=== PATIENT | female | born 1935 | race Caucasian/White ===

== ENCOUNTER 2017-03-25 12:03 | Inpatient (IN) | payer OTHER, MEDICARE ==
[2017-03-25] MEDS ORDERED: NS 1,000 ML IV ONE (12:41)
--- NOTE | 2017-03-25 12:45 | EDPHY ---
H & P Time Seen by Provider: 03/25/17 12:40 HPI/ROS: CHIEF COMPLAINT: HISTORY OF PRESENT ILLNESS: [Location, Duration, Severity, Quality, Context, Timing Modifying Factors, Associated S&S] REVIEW OF SYSTEMS: Constitutional: No fever, no chills Eyes: No visual changes ENT: No sore throat Respiratory: No cough, no shortness of breath Cardiac: No chest pain Gastrointestinal: No nausea, no vomiting, no abdominal pain Genitourinary: No hematuria, no dysuria Musculoskeletal: No leg pain or swelling Skin: No rash Neurological: No headache, no numbness, no weakness Psychiatric: No depression Past Medical/Surgical History: 1. Aortic aneurysm repair 10/30/13 (currently has stable aneurysm) 2. Hysterectomy 3. Appendectomy 4. Neck aneurysm dissection 5. Macular degeneration 6. Colon surgery 7. Colitis Social History: Lives in [place]. PCP Dr. Novoa. Smoking Status: Never smoked Physical Exam: General Appearance: Alert, no distress Eyes: Pupils equal and round, no conjunctival pallor or injection ENT, Mouth: Mucous membranes moist Neck: Normal inspection Respiratory: Lungs are clear to auscultation Cardiovascular: Regular rate and rhythm Gastrointestinal: Abdomen is soft and non- tender Neurological: A&O, nonfocal, normal gait Skin: Warm and dry, no rash Extremities: Nontender, no pedal edema Psychiatric: Mood and affect normal Constitutional: Initial Vital Signs Temperature (C) 36.8 C 03/25/17 12:09 Heart Rate 58 L 03/25/17 12:09 Respiratory Rate 18 03/25/17 12:09 Blood Pressure 119/50 L 03/25/17 12:09 O2 Sat (%) 92 03/25/17 12:09 O2 Delivery Mode Room Air Allergies/Adverse Reactions: No Known Allergies Allergy (Verified 03/25/17 12:06) Home Medications: Medication Instructions Recorded Ascorbic Acid [Vitamin C 500 mg 1,000 mg PO BIDMEAL 10/28/14 (*)] CYCLOBENZAPRINE HCL [Flexeril] 5 mg PO HS PRN 10/28/14 Calcium Carbonate [Calcium] 500 mg PO DAILY 10/28/14 Cholecalciferol Vit D3 [Vitamin D3 3,000 units PO DAILY 10/28/14 (*)] Dicyclomine HCl 10 mg PO DAILY PRN 10/28/14 FEXOFENADINE HCL 180 mg PO DAILY PRN 10/28/14 Herbals/Supplements -Info Only 1 ea PO DAILY 10/28/14 LORazepam [Ativan (*)] 0.5 mg PO HS PRN 10/28/14 Multivitamins [Multivitamin (*)] 1 each PO DAILY 10/28/14 Olmesartan Medoxomil [Benicar 20 10 mg PO DAILY 10/28/14 mg (*)] [place]-3 Fatty Acids/Fish Oil [Fish 1 each PO DAILY 10/28/14 Oil 1,000 mg Capsule] busPIRone [Buspar (*)] 5 mg PO BID 10/28/14 Acetaminophen [Tylenol 325mg (*)] 650 mg PO Q4 PRN #0 tab 11/04/14 Metoprolol Tartrate [Lopressor 50 50 mg PO BID #60 tab 11/14/14 mg (*)] Warfarin Sodium [Coumadin 5MG (RX)] 5 mg PO DAILY16 #30 tab 11/14/14 Departure - Departure Referrals: Anastacia Novoa MD [Primary Care Provider] - As per Instructions Report Scribed for: Hina Nina Report Scribed by: Leticia Neely Date of Report: 03/25/17 Time of Report: 12:41 Physician Review and Approval Statement: 03/25/17 12:42 Portions of this note were transcribed by a bilingual medical receptionist. I personally performed a history, physical exam, medical decision making, and confirmed accuracy of information the transcribed note.
[2017-03-25 12:48] LABS: % IMMATURE GRANULYOCYTES 0.2 % (0.0-1.1); ABSOLUTE IMMATURE GRANULOCYTES 0.02 10^3/uL (0.00-0.10); ADD DIFF? NO; ADD MORPH? NO; ADD SCAN? NO; ATYPICAL LYMPHOCYTE FLAG 0 (0-99); FRAGMENT RBC FLAG 0 (0-99); HEMATOCRIT 41.7 % (38.0-47.0); HEMOGLOBIN 13.7 g/dL (12.6-16.3); LEFT SHIFT FLG 40 (0-99); LIPEMIA HEMOLYSIS FLAG 80 (0-99); MEAN CELL HEMOGLOBIN 29.3 pg (27.9-34.1); MEAN CELL HEMOGLOBIN CONCENTR. 32.9 g/dL (32.4-36.7); MEAN CELL VOLUME 89.1 fL (81.5-99.8); MEAN PLATELET VOLUME 11.7 fL (8.7-11.7); PLATELET CLUMPS FLAG 0 (0-99); PLATELET COUNT 128 10^3/uL (150-400); RED BLOOD CELL COUNT 4.68 10^6/uL (4.18-5.33); RED CELL DISTRIBUTION WIDTH 15.3 % (11.5-15.2)
[2017-03-25 13:02] LABS: ANION GAP 11 mEq/L (8-16); CALCIUM 9.8 mg/dL (8.5-10.4); CARBON DIOXIDE 19 mEq/l (22-31); CHLORIDE 110 mEq/L (97-110); CREATININE 1.1 mg/dL (0.6-1.0); GLOMERULAR FILTRATION RATE 48; GLUCOSE 105 mg/dL (70-100); POTASSIUM 4.3 mEq/L (3.5-5.2); SODIUM 140 mEq/L (134-144)
--- NOTE | 2017-03-25 13:07 | EDPHY ---
H & P Time Seen by Provider: 03/25/17 12:40 HPI/ROS: CHIEF COMPLAINT: Abdominal pain HISTORY OF PRESENT ILLNESS: Patient is a 81-year-old female with a history of irritable bowel syndrome and previous colon resection who presents emergency department with ongoing abdominal discomfort. The patient states she has been under significant emotional stress. This usually causes her IBS to react. Patient states her symptoms have lasted longer than normal. Patient complains of left lower quadrant abdominal pain. Radiates slightly to the suprapubic region. It does not radiate to her back. No nausea or vomiting. Mild nonbloody diarrhea. No fevers or chills. This is similar to her previous episode when she required a colon resection. Patient also complains of left foot pain. She "jammed" her foot into a chair 5 days ago. She now has moderate pain "just under my toes." It does not radiate. REVIEW OF SYSTEMS: My complete review of systems is negative except as mentioned in the HPI. Past Medical/Surgical History: Includes IBS, aortic aneurysm, colitis, hypertension," neck aneurysm" Past surgical history: Includes aortic aneurysm repair x2, AVR, colon resection , hysterectomy, appendectomy Social: The patient does not smoke or drink Smoking Status: Never smoked Physical Exam: Vitals noted. GENERAL: No acute distress, alert. HEENT: Eyes normal to inspection, normal pharynx, no signs of dehydration. NECK: No thyromegaly, no lymphadenopathy, supple. No bruit. No palpable mass. RESPIRATORY: Clear to auscultation bilaterally, no rales, rhonchi or wheezing. CVS: Regular rate and rhythm, no rubs, murmurs, or gallops. ABDOMEN: Soft, left lower quadrant tenderness to palpation nondistended, no organomegaly. BACK: Normal to inspection, no CVA tenderness. SKIN: Normal color, no rash, warm, dry. No pallor. EXTREMITIES: No pedal edema, no calf tenderness, no Homans sign or cords, no joint swelling. NEURO/PSYCH: Alert and oriented x3, normal mood and affect, normal motor sensory exam. No obvious cranial nerve deficit. Constitutional: Initial Vital Signs Temperature (C) 36.8 C 03/25/17 12:09 Heart Rate 58 L 03/25/17 12:09 Respiratory Rate 18 03/25/17 12:09 Blood Pressure 119/50 L 03/25/17 12:09 O2 Sat (%) 92 03/25/17 12:09 O2 Delivery Mode Room Air Allergies/Adverse Reactions: No Known Allergies Allergy (Verified 03/25/17 12:06) Home Medications: Medication Instructions Recorded Ascorbic Acid [Vitamin C 500 mg 1,000 mg PO BIDMEAL 10/28/14 (*)] CYCLOBENZAPRINE HCL [Flexeril] 5 mg PO HS PRN 10/28/14 Calcium Carbonate [Calcium] 500 mg PO DAILY 10/28/14 Cholecalciferol Vit D3 [Vitamin D3 3,000 units PO DAILY 10/28/14 (*)] Dicyclomine HCl 10 mg PO DAILY PRN 10/28/14 FEXOFENADINE HCL 180 mg PO DAILY PRN 10/28/14 Herbals/Supplements -Info Only 1 ea PO DAILY 10/28/14 LORazepam [Ativan (*)] 0.5 mg PO HS PRN 10/28/14 Multivitamins [Multivitamin (*)] 1 each PO DAILY 10/28/14 Olmesartan Medoxomil [Benicar 20 10 mg PO DAILY 10/28/14 mg (*)] [place]-3 Fatty Acids/Fish Oil [Fish 1 each PO DAILY 10/28/14 Oil 1,000 mg Capsule] busPIRone [Buspar (*)] 5 mg PO BID 10/28/14 Acetaminophen [Tylenol 325mg (*)] 650 mg PO Q4 PRN #0 tab 11/04/14 Metoprolol Tartrate [Lopressor 50 50 mg PO BID #60 tab 11/14/14 mg (*)] Warfarin Sodium [Coumadin 5MG (RX)] 5 mg PO DAILY16 #30 tab 11/14/14 Medical Decision Making - Diagnostics Imaging Results: Imaging Impressions Abdomen CT 03/25/17 12:41 Impression: 1. Distal descending colon-sigmoid colon diverticulitis without abscess. This could potentially develop into a significant colonic obstruction. 2. Potential abnormal gallbladder mucosal mass. Recommend gallbladder ultrasound. Results discussed with Dr. Nina at 2:01 PM. General information for patients regarding this examination can be found at [email or web address]. If you have questions or comments about this report, please contact me at (hospital) or [phone] (cell). Foot X-Ray 03/25/17 13:08 Impression: Left fourth toe proximal phalanx oblique intra-articular fracture without significant displacement. Abdomen Ultrasound 03/25/17 14:07 Impression: Sludge and gallstones in the gallbladder. No gallbladder carcinoma. Results discussed with Dr. Sharif. ED Course/Re-evaluation: In the emergency department I discussed possible etiologies with the patient. I answered all her questions. IV was placed. Laboratory studies were ordered. Patient's creatinine was 1.1. A CT scan was ordered due the patient's significant left lower quadrant tenderness palpation. On recheck the patient was stable. CT of the abdomen pelvis: Please refer the dictated report by Dr. Daniel Chavez. The patient has signs consistent with diverticulitis. There are multiple air-fluid levels approximately with no obstruction at this point. Patient has known gallstones which are present currently. There is a mucosal mass in the gallbladder versus sludge. Discussed the results with the patient. I answered all her questions. Hospital service was paged. Patient will be admitted for further evaluation observation. I ordered an ultrasound of the right upper quadrant. LFTs were added. Ultrasound: Please refer the dictated report by Dr. Chavez. Gallbladder sludge. No mass or malignancy. Differential Diagnosis: My differential includes but is not limited to small-bowel obstruction, perforation, diverticulitis, colitis, urinary tract infection, pyelonephritis, aneurysm, dissection - Data Points Laboratory Results: Laboratory Results 03/25/17 12:25 03/25/17 12:25 03/25/17 03/25/17 03/25/17 12:25 12:25 12:25 WBC 8.37 10^3/uL 10^3/uL (3.80-9.50) RBC 4.68 10^6/uL 10^6/uL (4.18-5.33) Hgb 13.7 g/dL g/dL (12.6-16.3) Hct 41.7 % % (38.0-47.0) MCV 89.1 fL fL (81.5-99.8) MCH 29.3 pg pg (27.9-34.1) MCHC 32.9 g/dL g/dL (32.4-36.7) RDW 15.3 % H % (11.5-15.2) Plt Count 128 10^3/uL L 10^3/uL (150-400) MPV 11.7 fL fL (8.7-11.7) Neut % (Auto) 66.8 % % (39.3-74.2) Lymph % (Auto) 18.9 % % (15.0-45.0) [place] % (Auto) 12.8 % % (4.5-13.0) Eos % (Auto) 1.2 % % (0.6-7.6) Baso % (Auto) 0.1 % L % (0.3-1.7) Nucleat RBC Rel Count 0.0 % % (0.0-0.2) Absolute Neuts (auto) 5.59 10^3/uL 10^3/uL (1.70-6.50) Absolute Lymphs (auto) 1.58 10^3/uL 10^3/uL (1.00-3.00) Absolute Monos (auto) 1.07 10^3/uL H 10^3/uL (0.30-0.80) Absolute Eos (auto) 0.10 10^3/uL 10^3/uL (0.03-0.40) Absolute Basos (auto) 0.01 10^3/uL L 10^3/uL (0.02-0.10) Absolute Nucleated RBC 0.00 10^3/uL 10^3/uL (0-0.01) Immature Gran % 0.2 % % (0.0-1.1) Immature Gran # 0.02 10^3/uL 10^3/uL (0.00-0.10) Sodium 140 mEq/L mEq/L (134-144) Potassium 4.3 mEq/L mEq/L (3.5-5.2) Chloride 110 mEq/L mEq/L (97-110) Carbon Dioxide 19 mEq/l L mEq/l (22-31) Anion Gap 11 mEq/L mEq/L (8-16) BUN 26 mg/dL H mg/dL (7-23) Creatinine 1.1 mg/dL H mg/dL (0.6-1.0) Estimated GFR 48 Glucose 105 mg/dL H mg/dL (70-100) Calcium 9.8 mg/dL mg/dL (8.5-10.4) Total Bilirubin 0.8 mg/dL mg/dL (0.1-1.4) Conjugated Bilirubin 0.4 mg/dL mg/dL (0.0-0.5) Unconjugated Bilirubin 0.4 mg/dL mg/dL (0.0-1.1) AST 31 IU/L IU/L (14-46) ALT 27 IU/L IU/L (9-52) Alkaline Phosphatase 65 IU/L IU/L (38-126) Total Protein 6.2 g/dL L g/dL (6.3-8.2) Albumin 3.6 g/dL g/dL (3.5-5.0) Medications Given: Discontinued Medications Fentanyl (Sublimaze) 50 mcg IVP EDNOW ONE Stop: 03/25/17 13:27 Last Admin: 03/25/17 13:39 Dose: 50 mcg Sodium Chloride (Ns) 1,000 mls @ 0 mls/hr IV EDNOW ONE; Wide Open PRN Reason: Protocol Stop: 03/25/17 12:42 Last Admin: 03/25/17 12:50 Dose: 1,000 mls Ondansetron HCl (Zofran) 4 mg IVP EDNOW ONE Stop: 03/25/17 13:27 Last Admin: 03/25/17 13:39 Dose: 4 mg Departure - Departure Disposition: [facility] Inpatient Acute Clinical Impression: Abdominal pain Qualifiers: Abdominal location: left lower quadrant Qualified Code(s): R10.32 - Left lower quadrant pain Foot pain Qualifiers: Laterality: left Qualified Code(s): M79.672 - Pain in left foot Diverticulitis Qualifiers: Diverticulitis site: large intestine Diverticulitis bleeding: without bleeding Diverticulitis complication: without perforation or abscess Qualified Code(s): K57.32 - Diverticulitis of large intestine without perforation or abscess without bleeding Condition: Good
[2017-03-25] MEDS ORDERED: IOPAMIDOL (ISOVUE-300) 100 ML BTL ONE (13:10)
[2017-03-25] MEDS ORDERED: fentaNYL 100 MCG/2 ML INJ IVP ONE (13:26)
[2017-03-25] MEDS ORDERED: ONDANSETRON 4 MG/2 ML VIAL IVP ONE (13:26)
[2017-03-25] MEDS ORDERED: ONDANSETRON DISINTEGRATING 4 MG TAB PO PRN (14:24)
[2017-03-25] MEDS ORDERED: ACETAMINOPHEN 325 MG TAB PO PRN (14:24)
[2017-03-25] MEDS ORDERED: PROMETHAZINE HCL 25 MG/ML INJ IVP PRN (14:24)
[2017-03-25] MEDS ORDERED: ONDANSETRON 4 MG/2 ML VIAL IVP PRN (14:24)
[2017-03-25] MEDS ORDERED: PROMETHAZINE HCL 25 MG TAB PO PRN (14:24)
[2017-03-25 14:56] LABS: ALBUMIN 3.6 g/dL (3.5-5.0); BILIRUBIN,TOTAL 0.8 mg/dL (0.1-1.4); BILIRUBIN-CONJUGATED 0.4 mg/dL (0.0-0.5); BILIRUBIN-UNCONJUGATED 0.4 mg/dL (0.0-1.1); TOTAL PROTEIN 6.2 g/dL (6.3-8.2)
--- NOTE | 2017-03-25 15:32 | PDGENHP ---
History and Physical - Chief Complaint acute abdominal pain - History of Present Illness primary care provider: Dr. Novoa Primary buffer copper: Dr. Paulino Primary split and drum room supervisor: Dr. Barillas HPI: 81-year-old female presents with acute abdominal pain located in the left lower quadrant, characterized as radiating into the suprapubic area, of different character than her chronic irritable bowel syndrome pain. She reports onset of symptoms approximately 4 days ago and she does endorse heavy emotional component with significant stress in her life over the past week or 2. duration has been persistent over the past 4 days and has not been particularly alleviated by Bentyl or Imodium which she has tried at home. She has attempted to doses of tramadol and this has mildly alleviated her pain. Her last bowel movement was on the evening prior to this presentation she reports is soft, liquid, nonbloody nonmelanotic. She has had some associated nausea and reduced oral intake given that liquids and solids both seemed to exacerbate her nausea. Additionally, the patient reports that she "jammed" her left foot and has had moderate pain in that foot for the past 5 days. History Information - Allergies/Home Medication List Allergies/Adverse Reactions: No Known Allergies Allergy (Verified 03/25/17 12:06) Home Medications: Ascorbic Acid [Vitamin C 500 mg (*)] 1,000 mg PO BIDMEAL 10/28/14 [Last Taken Unknown] CYCLOBENZAPRINE HCL [Flexeril] 5 mg PO HS PRN 10/28/14 [Last Taken 11/10/14] Calcium Carbonate [Calcium] 500 mg PO DAILY 10/28/14 [Last Taken Unknown] Cholecalciferol Vit D3 [Vitamin D3 (*)] 3,000 units PO DAILY 10/28/14 [Last Taken Unknown] Dicyclomine HCl 10 mg PO DAILY PRN 10/28/14 [Last Taken Unknown] FEXOFENADINE HCL 180 mg PO DAILY PRN 10/28/14 [Last Taken Unknown] Herbals/Supplements -Info Only 1 ea PO DAILY 10/28/14 [Last Taken Unknown] LORazepam [Ativan (*)] 0.5 mg PO HS PRN 10/28/14 [Last Taken 11/11/14 07:30] Multivitamins [Multivitamin (*)] 1 each PO DAILY 10/28/14 [Last Taken Unknown] Olmesartan Medoxomil [Benicar 20 mg (*)] 10 mg PO DAILY 10/28/14 [Last Taken ] [place]-3 Fatty Acids/Fish Oil [Fish Oil 1,000 mg Capsule] 1 each PO DAILY [Last Taken Unknown] busPIRone [Buspar (*)] 5 mg PO BID 10/28/14 [Last Taken 11/11/14] I have personally reviewed and updated: family history, medical history, social history, surgical history - Past Medical History Additional medical history: Irritable bowel syndrome. Ascending aortic aneurysm with extension into the subclavian and common carotids. colitis - Surgical History Additional surgical history: colonic resection in [place]. Ascending aortic aneurysm surgery x2. Aortic valve replacement, mechanical - Family History Additional family history: vascular aneurysms in 6 relatives, no obstructive coronary disease - Social History Smoking Status: Never smoked Alcohol Use: Occasionally Drug Use: None Additional social history: lives independently Review of Systems ROS: 10pt was reviewed & negative except for what was stated in HPI & below Constitutional: Reports: weakness Gastrointestinal: Reports: abdominal pain, nausea Physical Exam Temp Pulse Resp BP Pulse Ox 36.8 C 55 L 16 103/58 L 93 03/25/17 14:50 03/25/17 14:50 03/25/17 14:50 03/25/17 14:50 03/25/17 14:50 Constitutional: no apparent distress, appears nourished, not in pain, uncomfortable Eyes: PERRL, anicteric sclera, EOMI Ears, Nose, Mouth, Throat: moist mucous membranes, hearing normal, ears appear normal, no oral mucosal ulcers Cardiovascular: systolic murmur ( 3 of 6 systolic murmur at the right sternal border with closing snap), No irregularly irregular, No tachycardia, No edema Respiratory: no respiratory distress, no rales or rhonchi, clear to auscultation Gastrointestinal: tenderness ( left hemidiaphragm), guarding ( voluntary on left ), No normoactive bowel sounds ( hypoactive bowel sounds), No distension Genitourinary: no bladder fullness, no bladder tenderness Skin: warm ( abdomen), No erythema, No rash Neurologic: AAOx3, sensation intact bilaterally, No weakness ( motor strength 5/ 5 bilateral lower extremity), No facial droop Psychiatric: interacting appropriately, not anxious, not encephalopathic, thought process linear Lab Data & Imaging Review 03/25/17 12:25 03/25/17 12:25 WBC 8.37 10^3/uL (3.80-9.50) 03/25/17 12:25 RBC 4.68 10^6/uL (4.18-5.33) 03/25/17 12:25 Hgb 13.7 g/dL (12.6-16.3) 03/25/17 12:25 Hct 41.7 % (38.0-47.0) 03/25/17 12:25 MCV 89.1 fL (81.5-99.8) 03/25/17 12:25 MCH 29.3 pg (27.9-34.1) 03/25/17 12:25 MCHC 32.9 g/dL (32.4-36.7) 03/25/17 12:25 RDW 15.3 % (11.5-15.2) H 03/25/17 12:25 Plt Count 128 10^3/uL (150-400) L 03/25/17 12:25 MPV 11.7 fL (8.7-11.7) 03/25/17 12:25 Neut % (Auto) 66.8 % (39.3-74.2) 03/25/17 12:25 Lymph % (Auto) 18.9 % (15.0-45.0) 03/25/17 12:25 [place] % (Auto) 12.8 % (4.5-13.0) 03/25/17 12:25 Eos % (Auto) 1.2 % (0.6-7.6) 03/25/17 12:25 Baso % (Auto) 0.1 % (0.3-1.7) L 03/25/17 12:25 Nucleat RBC Rel Count 0.0 % (0.0-0.2) 03/25/17 12:25 Absolute Neuts (auto) 5.59 10^3/uL (1.70-6.50) 03/25/17 12:25 Absolute Lymphs (auto) 1.58 10^3/uL (1.00-3.00) 03/25/17 12:25 Absolute Monos (auto) 1.07 10^3/uL (0.30-0.80) H 03/25/17 12:25 Absolute Eos (auto) 0.10 10^3/uL (0.03-0.40) 03/25/17 12:25 Absolute Basos (auto) 0.01 10^3/uL (0.02-0.10) L 03/25/17 12:25 Absolute Nucleated RBC 0.00 10^3/uL (0-0.01) 03/25/17 12:25 Immature Gran % 0.2 % (0.0-1.1) 03/25/17 12:25 Immature Gran # 0.02 10^3/uL (0.00-0.10) 03/25/17 12:25 Sodium 140 mEq/L (134-144) 03/25/17 12:25 Potassium 4.3 mEq/L (3.5-5.2) 03/25/17 12:25 Chloride 110 mEq/L (97-110) 03/25/17 12:25 Carbon Dioxide 19 mEq/l (22-31) L 03/25/17 12:25 Anion Gap 11 mEq/L (8-16) 03/25/17 12:25 BUN 26 mg/dL (7-23) H 03/25/17 12:25 Creatinine 1.1 mg/dL (0.6-1.0) H 03/25/17 12:25 Estimated GFR 48 03/25/17 12:25 Glucose 105 mg/dL (70-100) H 03/25/17 12:25 Calcium 9.8 mg/dL (8.5-10.4) 03/25/17 12:25 Total Bilirubin 0.8 mg/dL (0.1-1.4) 03/25/17 12:25 Conjugated Bilirubin 0.4 mg/dL (0.0-0.5) 03/25/17 12:25 Unconjugated Bilirubin 0.4 mg/dL (0.0-1.1) 03/25/17 12:25 AST 31 IU/L (14-46) 03/25/17 12:25 ALT 27 IU/L (9-52) 03/25/17 12:25 Alkaline Phosphatase 65 IU/L (38-126) 03/25/17 12:25 Total Protein 6.2 g/dL (6.3-8.2) L 03/25/17 12:25 Albumin 3.6 g/dL (3.5-5.0) 03/25/17 12:25 Visualized and Interpreted imaging results: Yes Interpretation: left 4th phalanx fracture Assessment & Plan Assessment: 81-year-old female presents with acute diverticulitis Plan: 1. Diverticulitis. Acute, new problem this provider, no further workup indicated. Present on abdominal CT with some air-fluid level suggestive of early obstruction but no abscess. - IV fluids - initiate Cipro and Flagyl for approximately 10 days - NPO with bowel rest, advanced to clear liquids when tolerates - hold on surgical consult at this time but would recommend outpatient surgical consultation, patient will require some names at time of discharge 2. Cholelithiasis. Acute, new problem this provider, further workup is indicated. CT of the abdomen did demonstrate some thickened mucosal wall of the gallbladder, was unclear whether there was evidence of something suggestive of malignancy, right upper quadrant ultrasound indicated for further evaluation as well as liver panel - patient does not currently have any evidence of right upper quadrant tenderness or acute cholecystitis 3. Irritable bowel syndrome. Chronic, continue patient on her home medications , this has been well managed by the patient 4. Acute kidney injury. Secondary to hypovolemia with elevated BUN and creatinine, give IV normal saline and repeat creatinine level in a.m. as well as monitor urine output 5. History of mechanical aortic valve. Patient is currently systemically anticoagulated, continue Coumadin and recheck INR in a.m. - if patient's condition decompensated and she required surgery, we would require rapid reversal of her INR bridging therapy Diet. NPO, advance to clears as tolerated Prophylaxis. High risk patient, currently on systemic anticoagulation Code. Full Disposition. Anticipated discharge is 03/26/2017, pending stabilization of conditions outlined above. I have discussed patient's presentation with Dr. Sharif in the emergency department, he had I both agree the patient should be observed overnight and treat supportively as discussed above.
[2017-03-25] MEDS: NS 1,000 ML IV SCH (16:45)
[2017-03-25] MEDS: CIPROFLOXACIN 400 MG/DEXTROSE 200 ML IV SCH ×2 (16:55→19:54)
[2017-03-25] MEDS: HYDROmorphONE/DILAUDID 1 MG/ML SYR IVP PRN ×4 (17:55→22:25)
[2017-03-25] MEDS ORDERED: WARFARIN SODIUM 5 MG TAB PO SCH (18:47)
[2017-03-25] MEDS ORDERED: DICYCLOMINE 10 MG CAP PO PRN (18:47)
[2017-03-25] MEDS ORDERED: ACETAMINOPHEN 500 MG TAB PO PRN (18:47)
[2017-03-25] MEDS: ASCORBIC ACID 500 MG TAB PO SCH ×2 (19:54→21:20)
[2017-03-25] MEDS: PRESERVISION AREDS2 FORMULA EYE VIT 1 EACH PO SCH ×2 (19:54→21:20)
[2017-03-25] MEDS: LORazepam 0.5 MG TAB PO SCH (19:55)
[2017-03-25] MEDS: CYCLOBENZAPRINE 10 MG TAB PO SCH (19:55)
[2017-03-25] MEDS: SERTRALINE HCL 50 MG TAB PO SCH (19:55)
[2017-03-25] MEDS ORDERED: NON-FORMULARY NEW DRUG (Cyclobenzaprine Hcl [Flexeril] 5 MG) PO SCH (21:00)
[2017-03-25] MEDS: busPIRone 15 MG TAB PO SCH (21:18)
[2017-03-26] MEDS: NS 1,000 ML IV SCH ×2 (02:45→11:59)
[2017-03-26] MEDS: HYDROmorphONE/DILAUDID 1 MG/ML SYR IVP PRN ×3 (02:45→22:30)
[2017-03-26 05:42] LABS: % IMMATURE GRANULYOCYTES 0.2 % (0.0-1.1); ABSOLUTE IMMATURE GRANULOCYTES 0.01 10^3/uL (0.00-0.10); ADD DIFF? NO; ADD MORPH? NO; ADD SCAN? NO; ATYPICAL LYMPHOCYTE FLAG 70 (0-99); FRAGMENT RBC FLAG 0 (0-99); HEMATOCRIT 33.9 % (38.0-47.0); LEFT SHIFT FLG 30 (0-99); LIPEMIA HEMOLYSIS FLAG 80 (0-99); MEAN CELL HEMOGLOBIN 29.6 pg (27.9-34.1); MEAN CELL HEMOGLOBIN CONCENTR. 32.4 g/dL (32.4-36.7); MEAN CELL VOLUME 91.1 fL (81.5-99.8); MEAN PLATELET VOLUME 11.7 fL (8.7-11.7); PLATELET CLUMPS FLAG 0 (0-99); PLATELET COUNT 98 10^3/uL (150-400); RED BLOOD CELL COUNT 3.72 10^6/uL (4.18-5.33); RED CELL DISTRIBUTION WIDTH 15.3 % (11.5-15.2)
[2017-03-26 05:52] LABS: INR 3.62 (0.83-1.16); PROTIME(PATIENT) 36.7 SEC (12.0-15.0)
[2017-03-26 06:04] LABS: ANION GAP 6 mEq/L (8-16); CALCIUM 8.6 mg/dL (8.5-10.4); CARBON DIOXIDE 19 mEq/l (22-31); CHLORIDE 115 mEq/L (97-110); CREATININE 0.8 mg/dL (0.6-1.0); GLOMERULAR FILTRATION RATE > 60; GLUCOSE 74 mg/dL (70-100); POTASSIUM 4.1 mEq/L (3.5-5.2); SODIUM 140 mEq/L (134-144)
[2017-03-26] MEDS: PRESERVISION AREDS2 FORMULA EYE VIT 1 EACH PO SCH ×2 (08:08→21:38)
[2017-03-26] MEDS: VITAMIN B COMPLEX 1 EA CAP/TAB PO SCH ×2 (08:08→09:24)
[2017-03-26] MEDS: MULTIVITAMINS 1 EACH TAB PO SCH ×2 (08:08→09:24)
[2017-03-26] MEDS: CHOLECALCIFEROL VIT D3 1,000 UNITS TAB PO SCH ×2 (08:08→09:24)
[2017-03-26] MEDS: CIPROFLOXACIN 400 MG/DEXTROSE 200 ML IV SCH ×2 (08:08→19:59)
[2017-03-26] MEDS: OMEGA-3 FATTY ACIDS 1,000 MG CAP PO SCH ×2 (08:09→09:24)
[2017-03-26] MEDS: busPIRone 15 MG TAB PO SCH ×3 (08:09→21:19)
[2017-03-26] MEDS: OLMESARTAN MEDOXOMIL 20 MG TAB PO SCH ×2 (08:09→11:16)
[2017-03-26] MEDS: ASCORBIC ACID 500 MG TAB PO SCH ×2 (08:10→21:39)
[2017-03-26] MEDS ORDERED: CETIRIZINE 10 MG TAB PO SCH (09:00)
[2017-03-26] MEDS ORDERED: NON-FORMULARY NEW DRUG (Fexofenadine Hcl [Fexofenadine Hcl] 180 MG) PO SCH (09:00)
[2017-03-26] MEDS ORDERED: NON-FORMULARY NEW DRUG (Olmesartan Medoxomil [Benicar] 40 MG) PO SCH (09:00)
[2017-03-26] MEDS: CARVEDILOL 25 MG TAB PO SCH ×2 (11:16→18:22)
[2017-03-26] MEDS: CETIRIZINE 10 MG TAB PO SCH (11:16)
[2017-03-26 12:31] LABS: COLOR YELLOW; LEUKOCYTE ESTERASE,URINE 3+ (NEGATIVE); NITRITE,URINE NEGATIVE (NEGATIVE)
[2017-03-26 12:34] LABS: BACTERIA TRACE /hpf (NONE SEEN); MUCUS TRACE /lpf (NONE-1+); WBC,URINE 15-25 /hpf (0-3)
--- NOTE | 2017-03-26 13:19 | HOSPPROG ---
Hospitalist Progress Note Assessment/Plan: 81-year-old female presents with acute diverticulitis. This is my first encounter, chart reviewed. D/W Dr Baugh. Plan: 1. Diverticulitis. - - Acute, present on abdominal CT with some air-fluid level suggestive of early obstruction but no abscess. - IV fluids - initiate Cipro and Flagyl for approximately 10 days - NPO with bowel rest, advanced to clear liquids when tolerates - hold on surgical consult at this time but will consult if not improving 2. Cholelithiasis. - Acute, CT of the abdomen did demonstrate some thickened mucosal wall of the gallbladder - unclear whether there was evidence of something suggestive of malignancy - right upper quadrant ultrasound shows sludge and gallstones - patient does not currently have any evidence of right upper quadrant tenderness or acute cholecystitis 3. Irritable bowel syndrome. -Chronic, continue patient on her home medications, this has been well managed by the patient 4. Acute kidney injury. - Secondary to hypovolemia with elevated BUN and creatinine, given IV normal saline - repeat creatinine level is stable 5. History of mechanical aortic valve. - Patient is currently systemically anticoagulated, hold today Coumadin and follow INR, goal is 2.5-3.5 - if patient's condition decompensated and she required surgery, we would require rapid reversal of her INR bridging therapy 6. Hx of aortic aneurysm -3 prior surgeries -some memory issues from prior surgery -seems stable 7. Pain abd, improved since yesterday 8. Broken toe stable, offered boot or taping pt refuses 9.Stress cont support Diet. clears as tolerated Prophylaxis. High risk patient, currently on systemic anticoagulation Code. Full Disposition. Change to inpt status. Will require cont IV abx and therapy Called daughter, Alexsandra, gave update per pt request. Subjective: Feeling very tired today. Some abd pain but better then yesterday. Objective: Vital Signs Temp Pulse Resp BP Pulse Ox 36.8 C 54 L 16 99/47 L 95 03/26/17 08:00 03/26/17 08:00 03/26/17 08:00 03/26/17 08:00 03/26/17 08:00 Laboratory Results 03/26/17 04:19 03/26/17 04:19 03/25/17 03/26/17 03/27/17 05:59 05:59 05:59 Intake Total 1300 100 Balance 1300 100 PT 36.7 SEC (12.0-15.0) H 03/26/17 04:19 INR 3.62 (0.83-1.16) H 03/26/17 04:19 - Physical Exam Constitutional: appears nourished, not in pain, chronically ill appearing Eyes: PERRL, anicteric sclera, EOMI Ears, Nose, Mouth, Throat: moist mucous membranes, hearing normal, ears appear normal Cardiovascular: regular rate and rhythym, No JVD, No edema Respiratory: no respiratory distress, no rales or rhonchi, reduced air movement Gastrointestinal: tenderness, No normoactive bowel sounds, No ascites Skin: warm, normal color, No erythema Musculoskeletal: normal joint ROM, no joint effusions, generalized weakness Neurologic: AAOx3 Psychiatric: not anxious, not encephalopathic, thought process linear, poor memory ICD10 Worksheet Patient Problems: Problems Problem Status Onset Aortic aneurysm Acute Abdominal pain Acute Foot pain Acute Diverticulitis Acute
[2017-03-26] MEDS: HYDROmorphONE/DILAUDID 2 MG TAB PO PRN ×2 (16:43→21:18)
[2017-03-26] MEDS ORDERED: WARFARIN SODIUM 5 MG TAB PO SCH (18:00)
[2017-03-26] MEDS: CYCLOBENZAPRINE 10 MG TAB PO SCH (21:18)
[2017-03-26] MEDS: LORazepam 0.5 MG TAB PO SCH (21:19)
[2017-03-26] MEDS: SERTRALINE HCL 50 MG TAB PO SCH (21:19)
[2017-03-27] MEDS: NS 1,000 ML IV SCH (01:36)
[2017-03-27] MEDS: HYDROmorphONE/DILAUDID 2 MG TAB PO PRN ×3 (01:36→21:43)
[2017-03-27 05:02] LABS: ANION GAP 6 mEq/L (8-16); CALCIUM 8.8 mg/dL (8.5-10.4); CARBON DIOXIDE 18 mEq/l (22-31); CHLORIDE 115 mEq/L (97-110); CREATININE 0.8 mg/dL (0.6-1.0); GLOMERULAR FILTRATION RATE > 60; GLUCOSE 79 mg/dL (70-100); POTASSIUM 4.2 mEq/L (3.5-5.2); SODIUM 139 mEq/L (134-144)
[2017-03-27] MEDS: CIPROFLOXACIN 400 MG/DEXTROSE 200 ML IV SCH (09:19)
[2017-03-27] MEDS: CETIRIZINE 10 MG TAB PO SCH (09:19)
[2017-03-27] MEDS: busPIRone 15 MG TAB PO SCH ×3 (09:19→21:43)
[2017-03-27 11:28] LABS: INR 4.25 (0.83-1.16); PROTIME(PATIENT) 41.7 SEC (12.0-15.0)
[2017-03-27] MEDS: CARVEDILOL 25 MG TAB PO SCH ×2 (12:17→16:15)
[2017-03-27] MEDS: CHOLECALCIFEROL VIT D3 1,000 UNITS TAB PO SCH (12:18)
[2017-03-27] MEDS: MULTIVITAMINS 1 EACH TAB PO SCH (12:18)
[2017-03-27] MEDS: OLMESARTAN MEDOXOMIL 20 MG TAB PO SCH (12:18)
[2017-03-27] MEDS: PRESERVISION AREDS2 FORMULA EYE VIT 1 EACH PO SCH ×2 (12:18→20:19)
[2017-03-27] MEDS: OMEGA-3 FATTY ACIDS 1,000 MG CAP PO SCH (12:18)
[2017-03-27] MEDS: ASCORBIC ACID 500 MG TAB PO SCH ×3 (12:18→20:23)
[2017-03-27] MEDS: VITAMIN B COMPLEX 1 EA CAP/TAB PO SCH (12:19)
--- NOTE | 2017-03-27 12:32 | HOSPPROG ---
Hospitalist Progress Note Assessment/Plan: 81-year-old female presents with acute diverticulitis. Plan: 1. Diverticulitis. - - Acute, present on abdominal CT with some air-fluid level suggestive of early obstruction but no abscess. - IV fluids DC - initiate Cipro and Flagyl for approximately 10 days - advance diet today - hold on surgical consult at this time but will consult if not improving 2. Cholelithiasis. - CT of the abdomen did demonstrate some thickened mucosal wall of the gallbladder - right upper quadrant ultrasound shows sludge and gallstones - patient does not currently have any evidence of right upper quadrant tenderness or acute cholecystitis 3. Irritable bowel syndrome. -Chronic, continue patient on her home medications, this has been well managed by the patient 4. Acute kidney injury. - Secondary to hypovolemia with elevated BUN and creatinine, given IV normal saline - resolved 5. History of mechanical aortic valve. - Patient is currently systemically anticoagulated, hold today Coumadin and follow INR, goal is 2.5-3.5 - if patient's condition decompensated and she required surgery, we would require rapid reversal of her INR bridging therapy 6. Hx of aortic aneurysm -3 prior surgeries -some memory issues from prior surgery -seems stable 7. Pain abd, improved since yesterday 8. Broken toe stable, offered boot or taping pt refuses 9.Stress cont support Diet. clears as tolerated Prophylaxis. High risk patient, currently on systemic anticoagulation Code. Full Disposition. cont IV abx, advance diet anticipate DC in am if doing better Subjective: Still distended. Having some pain. No BM. Objective: Vital Signs Temp Pulse Resp BP Pulse Ox 36.9 C 51 L 18 114/51 L 90 L 03/27/17 07:53 03/27/17 07:53 03/27/17 07:53 03/27/17 07:53 03/27/17 07:53 Laboratory Results 03/27/17 04:13 03/26/17 03/27/17 03/28/17 05:59 05:59 05:59 Intake Total 750 Output Total 20 Balance 730 PT 41.7 SEC (12.0-15.0) H 03/27/17 11:03 INR 4.25 (0.83-1.16) H 03/27/17 11:03 - Physical Exam Constitutional: appears nourished, uncomfortable Eyes: PERRL, anicteric sclera Ears, Nose, Mouth, Throat: moist mucous membranes, hearing normal Cardiovascular: regular rate and rhythym, No JVD Respiratory: no respiratory distress, reduced air movement Gastrointestinal: tenderness, No ascites, No guarding Skin: warm, normal color Musculoskeletal: full muscle strength, no joint effusions Neurologic: AAOx3 Psychiatric: interacting appropriately, not anxious, not encephalopathic ICD10 Worksheet Patient Problems: Problems Problem Status Onset Aortic aneurysm Acute Abdominal pain Acute Foot pain Acute Diverticulitis Acute
[2017-03-27] MEDS: metroNIDAZOLE 500 MG TAB PO SCH ×2 (14:34→21:43)
[2017-03-27] MEDS: LORazepam 0.5 MG TAB PO SCH (20:19)
[2017-03-27] MEDS: CYCLOBENZAPRINE 10 MG TAB PO SCH (20:19)
[2017-03-27] MEDS: SERTRALINE HCL 50 MG TAB PO SCH (20:19)
[2017-03-27] MEDS: CIPROFLOXACIN 500 MG TAB PO SCH (20:19)
[2017-03-28 05:20] LABS: INR 3.53 (0.83-1.16); PROTIME(PATIENT) 35.9 SEC (12.0-15.0)
[2017-03-28] MEDS: metroNIDAZOLE 500 MG TAB PO SCH (06:20)
[2017-03-28 07:36] VITALS: BP 150/75; PULSE 51; RESP 16; TEMP 98.4; O2SAT 90
[2017-03-28] MEDS: MULTIVITAMINS 1 EACH TAB PO SCH (08:33)
[2017-03-28] MEDS: OLMESARTAN MEDOXOMIL 20 MG TAB PO SCH (08:33)
[2017-03-28] MEDS: CARVEDILOL 25 MG TAB PO SCH (08:33)
[2017-03-28] MEDS: CETIRIZINE 10 MG TAB PO SCH (08:34)
[2017-03-28] MEDS: busPIRone 15 MG TAB PO SCH (08:34)
[2017-03-28] MEDS: ASCORBIC ACID 500 MG TAB PO SCH (08:34)
[2017-03-28] MEDS: PRESERVISION AREDS2 FORMULA EYE VIT 1 EACH PO SCH (08:35)
[2017-03-28] MEDS: VITAMIN B COMPLEX 1 EA CAP/TAB PO SCH (08:35)
[2017-03-28] MEDS: CHOLECALCIFEROL VIT D3 1,000 UNITS TAB PO SCH (08:35)
[2017-03-28] MEDS: OMEGA-3 FATTY ACIDS 1,000 MG CAP PO SCH (08:35)
[2017-03-28] MEDS: HYDROmorphONE/DILAUDID 2 MG TAB PO PRN (10:06)
[2017-03-28] MEDS: CIPROFLOXACIN 500 MG TAB PO SCH (10:06)
--- NOTE | 2017-03-28 23:46 | GDS ---
[f rep st] DISCHARGE SUMMARY DISCHARGE DIAGNOSES: 1. Diverticulitis. 2. History of irritable bowel syndrome. 3. Dehydration. 4. Cholelithiasis. 5. Acute kidney injury. 6. History of mechanical aortic valve. 7. History of aortic aneurysm. 8. Broken 4th toe. STUDIES AND PROCEDURES DONE: 1. CT of the abdomen. 2. Abdominal ultrasound. PHYSICAL EXAM: GENERAL: The patient is alert. VITAL SIGNS: Afebrile at 36.9, pulse is 51, respir atory rate is 16, blood pressure is 150/75. She is saturating 90% on room air. I have seen and evaluated the patient on the day of discharge. HOSPITAL COURSE: The patient is a 81-year-old female, who presented to the emergency room with comp laints of abdominal pain. She was evaluated and diagnosed with: 1. Acute diverticulitis. During this hospitalization, she was initiated on IV antibiotic therapy. She has responded well to this. She is tolerating a regular diet and having bowel movements. She will continue antibiotic therapy in the outpatient setting for a total of 10-day course. Follow up will be with her primary care physician. 2. Cholelithiasis. The patient is asymptomatic from this. Abdominal ultrasound notes sludge as we ll as gallstones. She has been informed with regard to this condition, and does not require any fur ther evaluation at this time. 3. History of irritable bowel syndrome. We will continue previously prescribed home medications. She does have some signs of diarrhea at the time of disposition that she feels is related to irritab le bowel syndrome, but she feels comfortable in managing this at home. 4. Acute kidney injury. This is in the setting of hypovolemia. This has resolved and responded we ll to IV hydration. 5. History of mechanical aortic valve as well as multiple aortic aneurysms. The patient has been c ontinued on her Coumadin therapy during this hospitalization. Her INR today at the time of discharg e is 3.53. She will continue her Coumadin in the outpatient setting with a reduced dosage and have INR evaluation on Friday03/31/2017. I have educated the patient with regard to this need for follo wup. 6. Pain. This is improved. 7. Broken 4th toe. Her pain is improving. She refused a boot during this hospital evaluation, and will continue to remain off the toe for comfort. DISPOSITION: The patient will be discharged home independently. Followup will be with her primary care physician, Dr. Anastacia Novoa, as well as INR evaluation on 03/31/2017. DISCHARGE MEDICATIONS: Please refer to EMR form. I have provided the patient a prescription for Di laudid 2 mg, #10, as well as ciprofloxacin 500 mg twice daily #16, and Flagyl 500 mg q.8 #24. I hav e instructed the patient to finish all of her antibiotic course. I have educated her that she should return to the emergency room if she develops increasing abdomina l pain, fever, or other significant concerns. There are no pending studies. I spent greater than 35 minutes in the care, coordination, and management of the patient's dispositi on. /[id number]/MODL
== END 2017-03-28 11:36 | disposition home or self-care (01) | DRG 392 ==
LOC: OBSVTOIN 14:25 → INTOOBSV 14:25 → F3E 16:05 → OBSVTOIN 03-26 10:05
PROVIDERS: ADMIT Internal Medicine; ATTEND Internal Medicine
DX: K57.32 Diverticulitis of large intestine without perforation or abscess without bleeding (principal); E86.0 Dehydration; N17.9 Acute kidney failure, unspecified; K80.20 Calculus of gallbladder without cholecystitis without obstruction; K58.9 Irritable bowel syndrome, unspecified; S92.514A Nondisplaced fracture of proximal phalanx of right lesser toe(s), initial encounter for closed fracture; W22.03XA Walked into furniture, initial encounter; Y92.9 Unspecified place or not applicable; Y99.8 Other external cause status; Z95.2 Presence of prosthetic heart valve; Z79.01 Long term (current) use of anticoagulants; I71.2 Thoracic aortic aneurysm, without rupture
CPT/HCPCS: 96374; 97116-GP; 97161-GP; G0378; G8978-GP-CI; G8979-GP-CI; G8980-GP-CI; J0744; J1170; J2405; J3010; Q9967

== ENCOUNTER 2017-07-31 10:33 | Emergency (ER) | payer OTHER, MEDICARE ==
[2017-07-31 10:51] VITALS: RESP 18; TEMP 97.9
--- NOTE | 2017-07-31 11:52 | EDPHY ---
General Narrative: CHIEF COMPLAINT: Foot pain HISTORY OF PRESENT ILLNESS: Patient complains of left foot pain. Onset of last evening. Location is the dorsum of the left foot. Duration is constant. Severity is [id number] at rest. Moderate to severe when she ambulates. No numbness or tingling. Radiates into the ankle. No warmth. No abscess. No trauma or injury. No calf tenderness or pain. No fever or chills. No numbness or tingling. No other associated complaints or modifying factors. Significant medical history discussed. REVIEW OF SYSTEMS: Ten systems reviewed and are negative unless otherwise noted in the HPI PCP: Dr. Cedeno SPECIALISTS: Dr. Jefferson Barkley PAST MEDICAL HISTORY: Hypertension, anxiety, aortic dissection, arterial vascular disease, CVA PAST SURGICAL HISTORY: Aortic dissection repair x3 SOCIAL HISTORY: Nonsmoker. No alcohol. No drug use FAMILY HISTORY: Noncontributory EXAMINATION General Appearance: Alert, no distress Head: normocephalic, atraumatic Eyes: Pupils equal and round, no conjunctival pallor or injection ENT, Mouth: Mucous membranes moist Neck: Normal inspection, supple, non-tender Respiratory: Lungs are clear to auscultation. No wheezing, rhonchi or crackles. Cardiovascular: Regular rate and rhythm. Harsh aortic murmur. Gastrointestinal: Abdomen is soft and nontender. No tympany rigidity. Neurological: A&O, nonfocal, normal gait. No foot drop. Normal light sensation on the top of both feet. Skin: Warm and dry, no rash. No petechiae purpura. Slight warmth to the dorsum of the left foot. No erythema. No induration. No fluctuance. Extremities: Extremities are symmetric in warmth. Good signs of perfusion of both feet. Tenderness of the left foot and distal ankle. No erythema. Range of motion is symmetric in the lower extremities. No evidence of DVT. Psychiatric: Mood and affect normal DIFFERENTIAL DIAGNOSES: Including but not limited to cellulitis, DVT, osteoarthritis, osteomyelitis, stress fracture MDM: 12:05 p.m. Atraumatic left foot pain. Vital signs are within normal limits. Pulses are symmetric in the DP. No cold extremity. I have ordered venous Doppler to rule out DVT. I have ordered laboratory studies. She is in no acute distress. She is ambulatory. 1:22 p.m. CBC and chemistry unremarkable. There is no leukocytosis. CRP is mildly elevated 14. Sed rate is pending. DVT study pending. 2:00 p.m. Notified by radiologist. Ultrasound of the left lower extremity is unremarkable for any findings. 3:00 p.m. Pain in the dorsum left foot without any definitive findings. Laboratory studies do not suggest infection or osteomyelitis. Her INR is mildly elevated, and she will follow up with the INR clinic or primary care physician to discuss this. Discharged home with pain medication and Semaj delgado. Follow up with primary care physician for further care. Return to ER for any redness, warmth, fever. Return to ER for any cold sensation or touch of the foot. She is comfortable this plan and discharged in stable condition. She is ambulatory at discharge. - Diagnostics Imaging Results: Imaging Impressions Foot X-Ray 07/31/17 10:52 Impression: [place] dorsal soft tissue swelling. Extremity Venous Study 07/31/17 12:03 Impression: Negative. No deep venous thrombosis. Findings discussed with Emergency Department physician field research assistant, Karthikeyan Aguilar PA-C on July 31, 2017 at 1337 hours. - History Smoking Status: Never smoked - Objective Vital Signs: Initial Vital Signs Temperature (C) 97.9 F 07/31/17 10:47 Heart Rate 49 L 07/31/17 10:47 Respiratory Rate 18 07/31/17 10:47 Blood Pressure 138/72 H 07/31/17 10:47 O2 Sat (%) 92 07/31/17 10:47 O2 Delivery Mode Room Air Allergies/Adverse Reactions: No Known Allergies Allergy (Verified 03/25/17 12:06) Home Medications: Medication Instructions Recorded Acetaminophen [Tylenol ES 500 mg 500 mg PO BID PRN 03/25/17 (*)] Ascorbic Acid [Vitamin C 500 mg 1,000 mg PO BID 03/25/17 (*)] C/E/Zn/Cu/OM3/DHA/EPA/LUT/ZEAX 1 each PO BID 03/25/17 [Preservision Areds 2 Softgel] CYCLOBENZAPRINE HCL [Flexeril] 5 mg PO HS 03/25/17 Carvedilol [Coreg (*)] 25 mg PO BIDMEAL 03/25/17 Cholecalciferol Vit D3 [Vitamin D3 1,000 units PO DAILY 03/25/17 (*)] Dicyclomine [Bentyl 10 MG (*)] 10 mg PO DAILY PRN 03/25/17 Fexofenadine HCl 180 mg PO DAILY 03/25/17 LORazepam [Ativan (*)] 0.5 mg PO HS 03/25/17 Metoprolol Tartrate [Lopressor 50 50 mg PO BID 03/25/17 mg (*)] Multivitamins [Multivitamin (*)] 1 each PO DAILY 03/25/17 Olmesartan Medoxomil [Benicar] 40 mg PO DAILY 03/25/17 [place]-3 Fatty Acids [Fish Oil 1000 1,000 mg PO DAILY 03/25/17 mg (*)] Sertraline HCl [Zoloft 50mg (*)] 100 mg PO HS 03/25/17 Vitamin B Complex [B Complex] 1 each PO DAILY 03/25/17 Warfarin Sodium [Coumadin 5MG (*)] 5 mg PO SUMOTUTHSA@18 03/25/17 Warfarin Sodium [Coumadin 5MG (*)] 7.5 mg PO WEFR@18 03/25/17 busPIRone [Buspar (*)] 15 mg PO TID 03/25/17 Ciprofloxacin [Cipro] 500 mg PO BID@1000,2000 #16 tab 03/28/17 HYDROmorphone HCL [Dilaudid 2 mg 2 mg PO Q4HRS PRN #10 tab 03/28/17 (*)] metroNIDAZOLE [Flagyl 500 mg (*)] 500 mg PO Q8HRS #24 tab 03/28/17 traMADol [Ultram 50 mg (*)] 50 mg PO Q4 PRN #19 tab 07/31/17 Laboratory Results: Laboratory Results 07/31/17 12:25 07/31/17 12:25 07/31/17 07/31/17 07/31/17 12:25 12:25 12:25 WBC 4.24 10^3/uL 10^3/uL (3.80-9.50) RBC 4.93 10^6/uL 10^6/uL (4.18-5.33) Hgb 14.7 g/dL g/dL (12.6-16.3) Hct 44.2 % % (38.0-47.0) MCV 89.7 fL fL (81.5-99.8) MCH 29.8 pg pg (27.9-34.1) MCHC 33.3 g/dL g/dL (32.4-36.7) RDW 15.7 % H % (11.5-15.2) Plt Count 105 10^3/uL L 10^3/uL (150-400) MPV 10.3 fL fL (8.7-11.7) Neut % (Auto) 47.5 % % (39.3-74.2) Lymph % (Auto) 37.7 % % (15.0-45.0) [place] % (Auto) 11.3 % % (4.5-13.0) Eos % (Auto) 3.3 % % (0.6-7.6) Baso % (Auto) 0.2 % L % (0.3-1.7) Nucleat RBC Rel Count 0.0 % % (0.0-0.2) Absolute Neuts (auto) 2.01 10^3/uL 10^3/uL (1.70-6.50) Absolute Lymphs (auto) 1.60 10^3/uL 10^3/uL (1.00-3.00) Absolute Monos (auto) 0.48 10^3/uL 10^3/uL (0.30-0.80) Absolute Eos (auto) 0.14 10^3/uL 10^3/uL (0.03-0.40) Absolute Basos (auto) 0.01 10^3/uL L 10^3/uL (0.02-0.10) Absolute Nucleated RBC 0.00 10^3/uL 10^3/uL (0-0.01) Immature Gran % 0.0 % % (0.0-1.1) Immature Gran # 0.00 10^3/uL 10^3/uL (0.00-0.10) ESR 8 MM/HR MM/HR (0-30) PT 37.9 SEC H SEC (12.0-15.0) INR 3.77 H (0.83-1.16) APTT 45.4 SEC H SEC (23.0-38.0) Sodium 142 mEq/L mEq/L (134-144) Potassium 4.4 mEq/L mEq/L (3.5-5.2) Chloride 105 mEq/L mEq/L (97-110) Carbon Dioxide 28 mEq/l mEq/l (22-31) Anion Gap 9 mEq/L mEq/L (8-16) BUN 24 mg/dL H mg/dL (7-23) Creatinine 1.0 mg/dL mg/dL (0.6-1.0) Estimated GFR 53 Glucose 84 mg/dL mg/dL (70-100) Calcium 10.0 mg/dL mg/dL (8.5-10.4) Creatine Kinase < 20 IU/L IU/L (0-156) C-Reactive Protein 14.3 mg/L H mg/L (<10.0) Departure - Departure Disposition: Home, Routine, Self-Care Clinical Impression: Foot pain, left, Warfarin-induced coagulopathy Condition: Good Instructions: Arthralgia (ED) Additional Instructions: 1. Semaj delgado as discussed as needed 2. Contact primary care physician to inform them of the elevated INR 3. Follow up with primary care physician for the foot pain 4. ED precautions for worsening pain, numbness, tingling, weakness, redness of the foot Referrals: Anastacia Novoa MD [Primary Care Provider] - As per Instructions Prescriptions: traMADol [Ultram 50 mg (*)] 50 mg PO Q4 PRN #19 tab PRN Reason: Pain, Mild
[2017-07-31 12:32] LABS: ADD DIFF? NO; ADD MORPH? NO; ADD SCAN? NO; ATYPICAL LYMPHOCYTE FLAG 10 (0-99); FRAGMENT RBC FLAG 0 (0-99); HEMATOCRIT 44.2 % (38.0-47.0); HEMOGLOBIN 14.7 g/dL (12.6-16.3); LEFT SHIFT FLG 0 (0-99); LIPEMIA HEMOLYSIS FLAG 80 (0-99); MEAN CELL HEMOGLOBIN 29.8 pg (27.9-34.1); MEAN CELL HEMOGLOBIN CONCENTR. 33.3 g/dL (32.4-36.7); MEAN CELL VOLUME 89.7 fL (81.5-99.8); MEAN PLATELET VOLUME 10.3 fL (8.7-11.7); PLATELET CLUMPS FLAG 0 (0-99); PLATELET COUNT 105 10^3/uL (150-400); RED BLOOD CELL COUNT 4.93 10^6/uL (4.18-5.33); RED CELL DISTRIBUTION WIDTH 15.7 % (11.5-15.2)
[2017-07-31 12:45] LABS: INR 3.77 (0.83-1.16); PROTIME(PATIENT) 37.9 SEC (12.0-15.0)
[2017-07-31 12:46] LABS: APTT 45.4 SEC (23.0-38.0)
[2017-07-31 12:54] LABS: ANION GAP 9 mEq/L (8-16); C-REACTIVE PROTEIN 14.3 mg/L (<10.0); CARBON DIOXIDE 28 mEq/l (22-31); CHLORIDE 105 mEq/L (97-110); GLOMERULAR FILTRATION RATE 53; GLUCOSE 84 mg/dL (70-100); POTASSIUM 4.4 mEq/L (3.5-5.2); SODIUM 142 mEq/L (134-144)
[2017-07-31 13:28] LABS: SEDIMENTATION RATE 8 MM/HR (0-30)
[2017-07-31 14:15] VITALS: BP 131/82; PULSE 46; O2SAT 98
== END 2017-07-31 14:15 | disposition home or self-care (01) ==
DX: M79.672 Pain in left foot (principal); D68.9 Coagulation defect, unspecified; I10 Essential (primary) hypertension; Z79.01 Long term (current) use of anticoagulants; Z86.73 Personal history of transient ischemic attack (TIA), and cerebral infarction without residual deficits
CPT/HCPCS: 73630; 93971; 99285; L4386

== ENCOUNTER 2017-10-04 17:05 | Emergency (ER) | payer OTHER, MEDICARE ==
[2017-10-04 17:20] VITALS: RESP 18
--- NOTE | 2017-10-04 17:44 | EDPHY ---
H & P Stated Complaint: Slipped in tub on Friday;pain R ant rib area, on coumadin Time Seen by Provider: 10/04/17 17:31 HPI/ROS: CHIEF COMPLAINT: Left rib pain HISTORY OF PRESENT ILLNESS: The patient is an 82-year-old female on Coumadin with a history of aortic aneurysm x3 with several surgical repairs most recently in 2013 also with a mechanical aortic valve. She also has another ascending aortic aneurysm that is being observed. She has also had a hysterectomy and partial bowel resection and appendectomy. She was taking a bath on Friday and slipped getting out landing on her left lateral rib cage on the edge of the bath. She has had pain in that area ever since. She states that it hurts with deep inspiration or bending forward. She has not felt faint or lightheaded. No difficulty walking. No back pain. REVIEW OF SYSTEMS: Constitutional: denies: chills, fever, recent illness, recent injury EENTM: denies: blurred vision, double vision, nose congestion Respiratory: denies: cough, shortness of breath Cardiac: denies: chest pain, irregular heart rate, lightheadedness, palpitations Gastrointestinal/Abdominal: denies: abdominal pain, diarrhea, nausea, vomiting, blood streaked stools Genitourinary: denies: dysuria, frequency, hematuria, pain Musculoskeletal: See HPI Skin: denies: lesions, rash, jaundice, bruising Neurological: denies: headache, numbness, paresthesia, tingling, dizziness, weakness Hematologic/Lymphatic: denies: blood clots, easy bleeding, easy bruising Immunologic/allergic: denies: HIV/AIDS, transplant EXAM: GENERAL: Well-appearing, well-nourished and in no acute distress. HEAD: Atraumatic, normocephalic. EYES: Pupils equal round and reactive to light, extraocular movements intact, sclera anicteric, conjunctiva are normal. ENT: TMs normal, nares patent, oropharynx clear without exudates. Moist mucous membranes. NECK: Normal range of motion, supple without lymphadenopathy or JVD. LUNGS: Left anterior/lateral rib tenderness, no crepitus. Breath sounds clear to auscultation bilaterally and equal. No wheezes rales or rhonchi. HEART: Regular rate and rhythm without murmurs, rubs or gallops. ABDOMEN: Soft, nontender, normoactive bowel sounds. No guarding, no rebound. No masses appreciated. BACK: No CVA tenderness, no spinal tenderness, step-offs or deformities EXTREMITIES: Normal range of motion, no pitting or edema. No clubbing or cyanosis. NEUROLOGICAL: Cranial nerves II through XII grossly intact. Normal speech, normal gait. 5/5 strength, normal movement in all extremities, normal sensation PSYCH: Normal mood, normal affect. SKIN: Warm, dry, normal turgor, no visible rashes or lesions. Source: Patient Exam Limitations: No limitations - Personal History Current Tetanus Diphtheria and Acellular Pertussis (TDAP): Yes Tetanus Vaccine Date: within last 10 years - Medical/Surgical History Hx Asthma: No Hx Chronic Respiratory Disease: No Hx Diabetes: No Hx Cardiac Disease: Yes Hx Renal Disease: No Hx Cirrhosis: No Hx Alcoholism: No Hx HIV/AIDS: No Hx Splenectomy or Spleen Trauma: No Other PMH: 3 aortic aneurysm repair 10/30/13 (currently has stable aneurysm) mechanical aortic valve. hysterectomy. appy, neck aneurysm, macular degeneration, colon resectionsurg , colitis/IBS - Family History Significant Family History: No pertinent family hx - Social History Smoking Status: Never smoked Alcohol Use: Sober Drug Use: None Constitutional: Initial Vital Signs Temperature (C) 36.4 C 10/04/17 17:10 Heart Rate 64 10/04/17 17:10 Respiratory Rate 18 10/04/17 17:10 Blood Pressure 168/88 H 10/04/17 17:10 O2 Sat (%) 94 10/04/17 17:10 O2 Delivery Mode Room Air Allergies/Adverse Reactions: No Known Allergies Allergy (Verified 10/04/17 17:15) Home Medications: Medication Instructions Recorded Carvedilol [Coreg (*)] 25 mg PO 10/04/17 LORazepam [Ativan (*)] 0.5 mg PO 10/04/17 Metoprolol Tartrate [Lopressor 50 50 mg PO 10/04/17 mg (*)] Sertraline HCl [Zoloft 25mg (*)] 25 mg PO DAILY 10/04/17 Warfarin Sodium [Coumadin 2MG (*)] 2 mg PO DAILY16 10/04/17 busPIRone [Buspar (*)] 10 mg PO 10/04/17 traMADol [Ultram 50 mg (*)] 50 mg PO Q4 10/04/17 Medical Decision Making - Diagnostics Imaging Results: Imaging Impressions Abdomen CT 10/04/17 17:41 Impression: No acute posttraumatic abnormality identified. Results called to Dr. Jones at 8:15 PM. Final results are concordant with the preliminary interpretation. General information for patients regarding this examination can be found at [employer]. If you have questions or comments about this report, please contact me at (hospital) or [phone] (cell). Chest/Thorax CTA 10/04/17 17:41 Impression: 1. Enlarging ascending aortic aneurysm without evidence of rupture. 2. No acute posttraumatic abnormality identified. 3. New left ventricular hypertrophy. Results called and discussed with CORBY ROACH, at 10/04/2017 20:08 General information for patients regarding this examination can be found at [employer]. If you have questions or comments about this report, please contact me at (hospital) or [phone] (cell). Imaging: Discussed imaging studies w/ faculty i on call medical assistant Radiologist ED Course/Re-evaluation: 8:30 p[address]. we discussed the CT results. Her rib and lung exam are reassuring. She will continue to take Tylenol and declines further pain medication. We discussed the increasing size of her ascending aortic aneurysm. She is well aware of this. This runs in her family. Her brother is in the room with the same condition. Previously she had decided not to have any further surgeries or procedures to treat this however after our discussion she states that she would like to think about it some more. 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 Paulino and his surgeon Dr. Barkley from [place]. I will also refer her to our cardiovascular surgery Department. Differential Diagnosis: Partial list of the Differential diagnosis considered include but were not limited to; rib fracture, contusion, pulmonary contusion and although unlikely based on the history and physical exam, I also considered pneumothorax, dissection, aneurysm rupture, splenic injury, renal injury. I discussed these differential diagnoses and the plan with the patient as well as the usual and expected course. The patient understands that the diagnosis is provisional and that in medicine we are not always correct and that further workup is often warranted. Usual and customary warnings were given. All of the patient's questions were answered. The patient was instructed to return to the emergency department should the symptoms at all worsen or return, otherwise to followup with the physician as we discussed. - Data Points Laboratory Results: Laboratory Results 10/04/17 17:55 10/04/17 17:55 10/04/17 10/04/17 10/04/17 17:55 17:55 17:55 WBC 6.27 10^3/uL 10^3/uL (3.80-9.50) RBC 4.94 10^6/uL 10^6/uL (4.18-5.33) Hgb 15.0 g/dL g/dL (12.6-16.3) POC Hgb Hct 43.8 % % (38.0-47.0) POC Hct MCV 88.7 fL fL (81.5-99.8) MCH 30.4 pg pg (27.9-34.1) MCHC 34.2 g/dL g/dL (32.4-36.7) RDW 15.2 % % (11.5-15.2) Plt Count 134 10^3/uL L 10^3/uL (150-400) MPV 10.3 fL fL (8.7-11.7) Neut % (Auto) 47.3 % % (39.3-74.2) Lymph % (Auto) 36.0 % % (15.0-45.0) [place] % (Auto) 12.8 % % (4.5-13.0) Eos % (Auto) 3.3 % % (0.6-7.6) Baso % (Auto) 0.3 % % (0.3-1.7) Nucleat RBC Rel Count 0.0 % % (0.0-0.2) Absolute Neuts (auto) 2.96 10^3/uL 10^3/uL (1.70-6.50) Absolute Lymphs (auto) 2.26 10^3/uL 10^3/uL (1.00-3.00) Absolute Monos (auto) 0.80 10^3/uL 10^3/uL (0.30-0.80) Absolute Eos (auto) 0.21 10^3/uL 10^3/uL (0.03-0.40) Absolute Basos (auto) 0.02 10^3/uL 10^3/uL (0.02-0.10) Absolute Nucleated RBC 0.00 10^3/uL 10^3/uL (0-0.01) Immature Gran % 0.3 % % (0.0-1.1) Immature Gran # 0.02 10^3/uL 10^3/uL (0.00-0.10) PT 36.6 SEC H SEC (12.0-15.0) INR 3.73 H (0.83-1.16) APTT 47.7 SEC H SEC (23.0-38.0) POC Sodium Sodium 142 mEq/L mEq/L (135-145) POC Potassium Potassium 4.5 mEq/L mEq/L (3.5-5.2) POC Chloride Chloride 108 mEq/L mEq/L (97-110) Carbon Dioxide 23 mEq/l mEq/l (22-31) Anion Gap 11 mEq/L mEq/L (8-16) POC BUN BUN 20 mg/dL mg/dL (7-23) Creatinine 1.0 mg/dL mg/dL (0.6-1.0) POC Creatinine Estimated GFR 53 Glucose 75 mg/dL mg/dL (70-100) POC Glucose Calcium 10.5 mg/dL H mg/dL (8.5-10.4) 10/04/17 17:46 WBC RBC Hgb POC Hgb 15.3 gm/dL gm/dL (12.6-16.3) Hct POC Hct 45 % % (38-47) MCV MCH MCHC RDW Plt Count MPV Neut % (Auto) Lymph % (Auto) [place] % (Auto) Eos % (Auto) Baso % (Auto) Nucleat RBC Rel Count Absolute Neuts (auto) Absolute Lymphs (auto) Absolute Monos (auto) Absolute Eos (auto) Absolute Basos (auto) Absolute Nucleated RBC Immature Gran % Immature Gran # PT INR APTT POC Sodium 142 mEq/L mEq/L (135-145) Sodium POC Potassium 4.2 mEq/L mEq/L (3.3-5.0) Potassium POC Chloride 107 mEq/L mEq/L (97-110) Chloride Carbon Dioxide Anion Gap POC BUN 20 mg/dL mg/dL (7-23) BUN Creatinine POC Creatinine 1.0 mg/dL mg/dL (0.6-1.0) Estimated GFR Glucose POC Glucose 77 mg/dL mg/dL (70-100) Calcium Point of Care Test Results: 10/04/17 17:46 POC Sodium 142 POC Potassium 4.2 POC Chloride 107 POC BUN 20 POC Creatinine 1.0 POC Glucose 77 Departure - Departure Disposition: Home, Routine, Self-Care Clinical Impression: Rib pain on left side, Ascending aortic aneurysm Condition: Fair Instructions: Thoracic Aortic Aneurysm (ED), Rib Contusion (ED) Referrals: Anastacia Novoa MD [Primary Care Provider] - As per Instructions Rashel Paulino MD [Medical Doctor] - As per Instructions Nate Caceres DO [Doctor of Osteopathy] - As per Instructions
[2017-10-04 18:05] LABS: PLATELET COUNT 134 10^3/uL (150-400)
[2017-10-04 18:46] LABS: INR 3.73 (0.83-1.16); PROTIME(PATIENT) 36.6 SEC (12.0-15.0)
[2017-10-04] MEDS ORDERED: IOPAMIDOL (ISOVUE 370) 100 ML BTL IV ONE (19:00)
[2017-10-04 20:45] VITALS: BP 158/78; PULSE 95; TEMP 98.1; O2SAT 97
== END 2017-10-04 20:45 | disposition home or self-care (01) ==
DX: I71.2 Thoracic aortic aneurysm, without rupture (principal); Z79.01 Long term (current) use of anticoagulants
CPT/HCPCS: 71275; 74177; 99285; Q9967; 82947-QW

== ENCOUNTER → 2017-10-27 | Outpatient (CLI) | payer OTHER, MEDICARE ==
[~2017-10-27] MED LIST: IOPAMIDOL (ISOVUE 370) 100 ML BTL IV ONE
== END ==
LOC: FIMAGING 13:24
PROVIDERS: ATTEND Thoracic Surgery (Cardiothoracic Vascular Surgery)
DX: I25.10 Atherosclerotic heart disease of native coronary artery without angina pectoris (principal); I71.2 Thoracic aortic aneurysm, without rupture
CPT/HCPCS: 75574; Q9967

== ENCOUNTER 2018-05-08 12:27 | Emergency (ER) | payer OTHER, MEDICARE ==
[2018-05-08 13:10] LABS: PLATELET COUNT 117 10^3/uL (150-400)
--- NOTE | 2018-05-08 13:10 | EDPHY ---
HPI/HX/ROS/PE/MDM Narrative: CHIEF COMPLAINT: Abdominal pain HPI: The patient is an 82-year-old female with a somewhat complicated past medical history significant for multiple aortic aneurysms and mechanical aortic valve, history of diverticulitis with some colon resection in the past. Patient states that she has had left lower quadrant abdominal pain for several days. She was apparently treated recently for a UTI with a what sounds like Macrobid 2-3 weeks ago. She reports diarrhea for the last week which is nonbloody. No fever or chills. She states this feels similar to prior episodes of diverticulitis. She did take an oral dicyclomine tablet which caused some relief. REVIEW OF SYSTEMS: Aside from elements discussed in the HPI, a comprehensive 10-point review of systems was reviewed and is negative. PMH: Includes aortic aneurysms, Coumadin use, diverticulitis, colon resection. SOCIAL HISTORY: Denies alcohol or drug use. PHYSICAL EXAM: General:Patient is alert, in no acute distress. Head: Normocephalic, atraumatic. ENT:Eyes are normal to inspection. ENT inspection normal. Neck: Normal inspection. Full range of motion. Respiratory:No respiratory distress. Breath sounds normal bilaterally. Cardiovascular: Regular rate and rhythm. Strong peripheral pulses. Normal cap refill. Abdomen:The abdomen is tender to palpation in the left lower quadrant. No peritoneal signs. Skin: Normal color. No rash. Warm and dry. Extremities: Normal appearance. Full range of motion. Neuro: Oriented x3. Normal motor function. Normal sensory function. ED Course: CT of the abdomen and pelvis is negative for signs of diverticulitis or other abnormality. On re-evaluation at 3:15 p.m., the patient is comfortable and her abdomen is benign. Her workup is negative. She has been unable to provide a stool sample. I offered her option of further observation in the ER to see if she can produce a stool sample verses follow up with her PCP for this and she would like to go home. I informed her that her urinalysis was mildly abnormal and offered her choice of antibiotics versus urine culture. She has chosen the latter. We will not prescribe any antibiotics at this time and she will follow up with her primary physician. - Data Points Imaging Results: Imaging Impressions Abdomen CT 05/08/18 13:41 Impression: 1. Atherosclerotic aorta without aneurysm. 2. Sigmoid diverticulosis without diverticulitis or bowel obstruction. 3. Cholelithiasis without biliary ductal dilation. 4. Small hiatal hernia. Findings and recommendations discussed with Emergency Department physician, Daniel Curiel MD, at 1445 hour, 05/08/2018. Final report concurs with initial preliminary interpretation. Imaging: Discussed imaging studies w/ at home independent call center agent Radiologist Laboratory Results: Laboratory Results 05/08/18 12:57 05/08/18 12:57 05/08/18 05/08/18 05/08/18 14:06 12:57 12:57 WBC RBC Hgb Hct MCV MCH MCHC RDW Plt Count MPV Neut % (Auto) Lymph % (Auto) [place] % (Auto) Eos % (Auto) Baso % (Auto) Nucleat RBC Rel Count Absolute Neuts (auto) Absolute Lymphs (auto) Absolute Monos (auto) Absolute Eos (auto) Absolute Basos (auto) Absolute Nucleated RBC Immature Gran % Immature Gran # PT 29.8 SEC H SEC (12.0-15.0) INR 2.85 H (0.83-1.16) Sodium 137 mEq/L mEq/L (135-145) Potassium 4.5 mEq/L mEq/L (3.3-5.0) Chloride 107 mEq/L mEq/L (97-110) Carbon Dioxide 22 mEq/l mEq/l (22-31) Anion Gap 8 mEq/L mEq/L (8-16) BUN 22 mg/dL mg/dL (7-23) Creatinine 0.9 mg/dL mg/dL (0.6-1.0) Estimated GFR 60 Glucose 92 mg/dL mg/dL (70-100) Calcium 9.6 mg/dL mg/dL (8.5-10.4) Urine Color [place]OYA Urine Appearance HAZY Urine pH 5.0 (5.0-7.5) Ur Specific [place] 1.019 (1.002-1.030) Urine Protein NEGATIVE (NEGATIVE) Urine Ketones NEGATIVE (NEGATIVE) Urine Blood NEGATIVE (NEGATIVE) Urine Nitrate NEGATIVE (NEGATIVE) Urine Bilirubin NEGATIVE (NEGATIVE) Urine Urobilinogen NEGATIVE EU EU (0.2-1.0) Ur Leukocyte Esterase 1+ H (NEGATIVE) Urine RBC NONE SEEN /hpf /hpf (0-3) Urine WBC 10-15 /hpf H /hpf (0-3) Ur Epithelial Cells NONE SEEN /lpf /lpf (NONE-1+) Urine Mucus TRACE /lpf /lpf (NONE-1+) Urine Glucose NEGATIVE (NEGATIVE) 05/08/18 12:57 WBC 4.83 10^3/uL 10^3/uL (3.80-9.50) RBC 4.60 10^6/uL 10^6/uL (4.18-5.33) Hgb 13.7 g/dL g/dL (12.6-16.3) Hct 40.9 % % (38.0-47.0) MCV 88.9 fL fL (81.5-99.8) MCH 29.8 pg pg (27.9-34.1) MCHC 33.5 g/dL g/dL (32.4-36.7) RDW 14.6 % % (11.5-15.2) Plt Count 117 10^3/uL L 10^3/uL (150-400) MPV 10.9 fL fL (8.7-11.7) Neut % (Auto) 46.2 % % (39.3-74.2) Lymph % (Auto) 35.2 % % (15.0-45.0) [place] % (Auto) 15.7 % H % (4.5-13.0) Eos % (Auto) 2.5 % % (0.6-7.6) Baso % (Auto) 0.2 % L % (0.3-1.7) Nucleat RBC Rel Count 0.0 % % (0.0-0.2) Absolute Neuts (auto) 2.23 10^3/uL 10^3/uL (1.70-6.50) Absolute Lymphs (auto) 1.70 10^3/uL 10^3/uL (1.00-3.00) Absolute Monos (auto) 0.76 10^3/uL 10^3/uL (0.30-0.80) Absolute Eos (auto) 0.12 10^3/uL 10^3/uL (0.03-0.40) Absolute Basos (auto) 0.01 10^3/uL L 10^3/uL (0.02-0.10) Absolute Nucleated RBC 0.00 10^3/uL 10^3/uL (0-0.01) Immature Gran % 0.2 % % (0.0-1.1) Immature Gran # 0.01 10^3/uL 10^3/uL (0.00-0.10) PT INR Sodium Potassium Chloride Carbon Dioxide Anion Gap BUN Creatinine Estimated GFR Glucose Calcium Urine Color Urine Appearance Urine pH Ur Specific [place] Urine Protein Urine Ketones Urine Blood Urine Nitrate Urine Bilirubin Urine Urobilinogen Ur Leukocyte Esterase Urine RBC Urine WBC Ur Epithelial Cells Urine Mucus Urine Glucose General Time Seen by Provider: 05/08/18 12:39 Initial Vital Signs: Initial Vital Signs Temperature (C) 36.9 C 05/08/18 12:29 Heart Rate 71 05/08/18 12:29 Respiratory Rate 16 05/08/18 12:29 Blood Pressure 116/68 05/08/18 12:29 O2 Sat (%) 98 05/08/18 12:29 O2 Delivery Mode Room Air Allergies/Adverse Reactions: metoprolol [From Lopressor] Allergy (Unknown, Verified 10/13/17 10:47) Nausea metronidazole [From Flagyl] Allergy (Verified 05/08/18 12:34) Home Medications: Medication Instructions Recorded Carvedilol [Coreg (*)] 25 mg PO BID 10/04/17 LORazepam [Ativan (*)] 0.5 mg PO DAILY PRN 10/04/17 traMADol [Ultram 50 mg (*)] 50 mg PO Q4 10/04/17 Acetaminophen [Tylenol ES 500 mg 500 mg PO Q6 PRN 10/13/17 (*)] Ascorbic Acid [Vitamin C 500 mg 2,000 mg PO DAILY 10/13/17 (*)] C/E/Zn/Cu/OM3/DHA/EPA/LUT/ZEAX 1 each PO DAILY 10/13/17 [Preservision Areds 2 Softgel] Cholecalciferol Vit D3 [Vitamin D3 1,000 units PO DAILY 10/13/17 (*)] Dicyclomine [Bentyl 10 MG (*)] 10 mg PO TID PRN 10/13/17 Fexofenadine HCl [Alfreda Allergy] 60 mg PO DAILY 10/13/17 Herbals/Supplements -Info Only 1 ea PO DAILY 10/13/17 Multivitamins [Multivitamin (*)] 1 each PO DAILY 10/13/17 Olmesartan Medoxomil 40 mg PO DAILY 10/13/17 [place]-3 Fatty Acids [Fish Oil 1000 1,000 mg PO DAILY 10/13/17 mg (*)] Sertraline HCl [Zoloft 50mg (*)] 100 mg PO HS 10/13/17 Vitamin B Complex [B Complex] 1 each PO DAILY 10/13/17 Warfarin Sodium [Coumadin 5MG (*)] 5 mg PO SUTUWETHFRSA 10/13/17 Warfarin Sodium [Coumadin 7.5MG 7.5 mg PO MO 10/13/17 (*)] busPIRone [Buspar (*)] 15 mg PO BID 10/13/17 tiZANidine HCL [Zanaflex 2MG (*)] 2 mg PO HS 10/13/17 Departure - Departure Disposition: Home, Routine, Self-Care Clinical Impression: Diarrhea, Abdominal pain Condition: Good Instructions: Acute Abdominal Pain (ED) Additional Instructions: Follow-up with your primary doctor within 72 hours. Return to the Emergency Department for worsening pain, fever, severe vomiting, change in character or severity of pain or other worsening of condition. Referrals: Anastacia Novoa MD [Primary Care Provider] - As per Instructions
[2018-05-08 13:34] LABS: INR 2.85 (0.83-1.16); PROTIME(PATIENT) 29.8 SEC (12.0-15.0)
[2018-05-08] MEDS ORDERED: IOPAMIDOL (ISOVUE-300) 100 ML BTL ONE (14:03)
[2018-05-08] MEDS ORDERED: NS 500 ML IV ONE (15:47)
--- NOTE | 2018-05-08 16:01 | CPEKG ---
Test Reason : OPEN Blood Pressure : / mmHG Vent. Rate : 046 BPM Atrial Rate : 045 BPM P-R Int : 222 ms QRS Dur : 096 ms QT Int : 504 ms P-R-T Axes : 075 022 092 degrees QTc Int : 441 ms Sinus bradycardia Borderline prolonged WA interval Nonspecific T abnrm, anterolateral leads Confirmed by Zeeshan Humphries ([id number]) on 05/08/2018 4:00:55 PM Referred By: Confirmed By:Zeeshan Humphries
[2018-05-08 16:42] VITALS: BP 145/70
== END 2018-05-08 16:42 | disposition home or self-care (01) ==
DX: R10.9 Unspecified abdominal pain (principal); R19.7 Diarrhea, unspecified; Z79.01 Long term (current) use of anticoagulants; Z86.79 Personal history of other diseases of the circulatory system; Z66 Do not resuscitate
CPT/HCPCS: 74177; 93005; 99285; Q9967